=== PATIENT | female | born 1940 | race American Indian/Alaskan Native ===

== ENCOUNTER 2019-05-29 10:42 | Inpatient (IN) | payer MEDICARE ==
--- NOTE | 2019-05-29 11:29 | Emergency Department Report ---
HPI - General Chief Complaint: Chest Pain Time Seen by Provider: 05/29/19 11:16 - HPI HPI: 78-year-old -[place] female presents to the emergency department after she had a few syncopal or unresponsive episodes and later complained of some chest pain. The patient has a history of dementia and her daughter, who is currently her guardian, is at bedside giving most of the information. She says that the patient got up this morning and was at her normal baseline status when she suddenly started trembling and appeared to lose consciousness. She once again became responsive and her son helped her get up off of the toilet in the bathroom. They were then heading towards the door when the patient once again passed out and became unresponsive. At this point, EMS was called, and the patient woke up and became responsive by the time they arrived. At that point she complained of some chest pain. The patient is a poor historian. Her primary care physician is Dr. Chris Echols. 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 The patient also has a past medical history of hypertension, diabetes, coronary artery disease with MD and [address] ED Past Medical Hx - Past Medical History Hx Hypertension: Yes Hx CVA: Yes Hx Diabetes: Yes Hx Dementia: Yes - Social History Smoking Status: Never Smoker Substance Use Type: None - Medications Home Medications: Home Medications Medication Instructions Recorded Confirmed Last Taken Type Carvedilol [Coreg] 12.5 mg PO BID 05/29/19 05/29/19 05/29/19 History Clopidogrel [Plavix] 75 mg PO QDAY 05/29/19 05/29/19 05/29/19 History Lisinopril [Zestril TAB] 40 mg PO QDAY 05/29/19 05/29/19 05/29/19 History Metformin HCl [metFORMIN] 1,000 mg PO BID 05/29/19 05/29/19 05/29/19 History glyBURIDE [Diabeta] 5 mg PO DAILY 05/29/19 05/29/19 05/29/19 History ED Review of Systems ROS: Stated complaint: CHEST PAIN Other details as noted in HPI Comment: Unobtainable due to pts medical conditions Cardiovascular: chest pain, syncope Physical Exam - Physical Exam Vital Signs: Vital Signs 05/29/19 05/29/19 11:18 11:22 Temperature 97.7 F 97.7 F Pulse Rate 83 83 Respiratory 20 20 Rate Blood Pressure 141/79 Blood Pressure 141/79 [Left] O2 Sat by Pulse 97 97 Oximetry Physical Exam: GENERAL: The patient is well-developed well-nourished. HENT: Normocephalic. Atraumatic. Patient has moist mucous membranes. EYES: Extraocular motions are intact. NECK: Supple. Trachea is midline. CHEST/LUNGS: Clear to auscultation. There is no respiratory distress noted. HEART/CARDIOVASCULAR: Regular. There is no tachycardia. There is no murmur. ABDOMEN: Abdomen is soft, nontender. Patient has normal bowel sounds. There is no abdominal distention. SKIN: Skin is warm and dry. NEURO: The patient is awake but confused. Normal speech. No facial asymmetry. MUSCULOSKELETAL: There is no tenderness or deformity. There is no evidence of acute injury. ED Course Vital Signs 05/29/19 05/29/19 11:18 11:22 Temperature 97.7 F 97.7 F Pulse Rate 83 83 Respiratory 20 20 Rate Blood Pressure 141/79 Blood Pressure 141/79 [Left] O2 Sat by Pulse 97 97 Oximetry ED Medical Decision Making - Lab Data Result diagrams: 05/30/19 05:20 05/30/19 05:20 - EKG Data -: EKG Interpreted by Me EKG shows normal: sinus rhythm, axis, intervals, QRS complexes, ST-T waves Rate: normal - EKG Data When compared to previous EKG there are: previous EKG unavailable Interpretation: normal EKG - Radiology Data Radiology results: report reviewed, image reviewed interpreted by me: Chest x-ray does not show any acute process. There are no pleural effusions, obvious pneumonia and there is no pneumothorax. CT head/brain wo con INDICATION / CLINICAL INFORMATION: 78 years Female; AMS, unresponsive episode. TECHNIQUE: Routine CT head without contrast. All CT scans at this location are performed using CT dose reduction for ALARA by means of automated exposure control. COMPARISON: None. FINDINGS: BRAIN / INTRACRANIAL CONTENTS: No acute hemorrhage, mass effect, midline shift, hydrocephalus, or acute, large territorial infarct. No chronic infarct or encephalomalacia. Moderate cortical involution is seen. Temporal horn tips are markedly dilated bilaterally suggesting bilateral significant volume loss in the medial temporal lobes. In the sagittal images, marked atrophy of the entorhinal cortex is seen. These findings just enough Alzheimer's disease. Cerebellar hemispheres are well preserved. Periventricular and deep hemispheric white matter are normal. CRANIOCERVICAL JUNCTION: No significant abnormality. ORBITS: No significant abnormality of visualized orbits. SINUSES / MASTOIDS: No significant abnormality of the visualized paranasal sinuses or mastoid air cells. ADDITIONAL FINDINGS: None. IMPRESSION: I do not see an acute parenchymal lesion in the brain CT findings show volume loss in the medial temporal lobes and entorhinal cortex. These findings are suggestive of Alzheimer's disease. CTA CHEST WITH IV CONTRAST INDICATION: Chest pain, elevated d-dimer. TECHNIQUE: Axial CT images were obtained through the chest after injection of 100 mL Omnipaque 350 IV contrast. 3 plane MIP reconstructions were produced. All CT scans at this location are performed using CT dose reduction for ALARA by means of automated exposure control. COMPARISON: One view of the chest from earlier today. FINDINGS: PULMONARY ARTERIES: Well-opacified with extensive occlusive and nonocclusive thromboemboli beginning at the bifurcations of the main pulmonary arteries and extending along the segmental/subcutaneous segmental branches throughout each lung. No saddle emboli sm is identified. The pulmonary trunk is normal in caliber. AORTA AND ARTERIES: The aorta is normal in caliber. There is mild to moderate generalized atherosclerosis along the aorta and great vessels with dense generalized coronary atherosclerosis. MEDIASTINUM: The right thyroid lobe is mildly enlarged. No thyroid nodules are seen. The trachea and main bronchi are patent and normal in caliber. The trachea is mildly deviated to the left secondary to mass effect by the right thyroid lobe. No mass or lymphadenopathy is noted. The heart is normal in size without a pericardial effusion. No evidence of right heart strain is appreciated. LUNGS: Clear without a pneumothorax or pleural effusion. ADDITIONAL FINDINGS: None. UPPER ABDOMEN: No acute findings. BONES: There is osteopenia with degenerative changes of the shoulders and spine. No acute abnormality is seen. IMPRESSION: 1. Extensive bilateral pulmonary artery thromboemboli without evidence of right heart strain. 2. No additional acute abnormality of the chest. 3. Additional findings as above. - Medical Decision Making This patient was brought into the emergency department after having 2 syncopal and/or unresponsive episodes and then complaining of some chest discomfort. The patient is a very poor historian secondary to her dementia. Vital signs are stable throughout her ED course. A CT scan of the head was done that does not show any bleed, shift, mass, ischemia, or any other acute process. Patient's labs showed hypokalemia and a severely elevated d-dimer level. First troponin was negative. Secondary to the elevated d-dimer, a CT angiography of the chest was done that showed extensive bilateral pulmonary emboli without signs of right heart strain. Patient's second troponin began elevating. EKG did not show any signs of ST elevation MD. The patient was admitted to the telemetry floor by the hospitalist, Dr. Long, who ordered and initiated the IV heparin treatment. - Differential Diagnosis dementia, MD, PE, subarachnoid, dysrhythmia Critical Care Time: Yes Critical care time in (mins) excluding proc time.: 35 Critical care attestation.: If time is entered above; I have spent that time in minutes in the direct care of this critically ill patient, excluding procedure time. Critical care time was spent on this patient and doing her initial evaluation, multiple re-evaluations, ordering and interpretation of labs and imaging, discussion with the radiologist and hospitalist, discussion with the patient's family. Critical Care Time: 35 minutes ED Disposition Clinical Impression: Recurrent episodes of unresponsiveness, Acute chest pain, Hypokalemia, Elevated troponin Syncope Qualifiers: Syncope type: unspecified Qualified Code(s): R55 - Syncope and collapse Pulmonary emboli Qualifiers: Pulmonary embolism type: unspecified Chronicity: acute Acute cor pulmonale presence: without acute cor pulmonale Qualified Code(s): I26.99 - Other pulmonary embolism without acute cor pulmonale Disposition: OP ADMIT IP TO THIS HOSP Is pt being admited?: Yes Condition: Serious Time of Disposition: 15:09
[2019-05-29 11:50] LABS: Basophils # (Auto) 0.1 K/mm3 (0.0-0.1); Basophils % (Auto) 0.6 % (0.0-1.8); Eosinophils # (Auto) 0.1 K/mm3 (0.0-0.4); Eosinophils % (Auto) 1.2 % (0.0-4.3); Hematocrit 38.3 % (30.3-42.9); Hemoglobin 12.9 gm/dl (10.1-14.3); Lymphocytes # (Auto) 1.6 K/mm3 (1.2-5.4); Lymphocytes % (Auto) 15.3 % (13.4-35.0); Mean Corpuscular HGB Conc 34 % (30-34); Mean Corpuscular Volume 77 fl (79-97); Monocytes # (Auto) 0.6 K/mm3 (0.0-0.8); Monocytes % (Auto) 6.2 % (0.0-7.3); Platelet Count 170 K/mm3 (140-440); Red Blood Count 4.97 M/mm3 (3.65-5.03)
[2019-05-29] MEDS ORDERED: LORazepam 2 MG/ML VIAL IV ONE (12:05)
[2019-05-29] MEDS ORDERED: LORazepam 2 MG/ML VIAL ONE (12:07)
[2019-05-29 12:12] LABS: INR 1.18 (0.87-1.13)
[2019-05-29 12:14] LABS: Partial Thromboplastin Time 24.4 Sec. (24.2-36.6)
[2019-05-29 12:19] LABS: Alanine Aminotransferase 14 units/L (7-56); Albumin 3.8 g/dL (3.9-5); BUN/Creatinine Ratio 23; Blood Urea Nitrogen 21 mg/dL (7-17); Calcium 9.1 mg/dL (8.4-10.2); Hemolysis Index 9
--- NOTE | 2019-05-29 12:42 | XRay Report ---
CHEST 1 VIEW INDICATION: CP. COMPARISON: None. FINDINGS: Support devices: None. Heart: Within normal limits. Pulmonary vasculature: Normal. Lungs/Pleura: No acute air space or interstitial disease. Additional findings: None. IMPRESSION: 1. No acute findings. Signer Name: Luis Daniel Wadsworth MD Signed: 05/29/2019 12:38 PM Workstation Name: [id number]
[2019-05-29] MEDS ORDERED: POTASSIUM CHLORIDE ER 20 MEQ TAB PO ONE ×2 (13:03→23:24)
--- NOTE | 2019-05-29 14:06 | Cat Scan Report ---
CT head/brain wo con INDICATION / CLINICAL INFORMATION: 78 years Female; AMS, unresponsive episode. TECHNIQUE: Routine CT head without contrast. All CT scans at this location are performed using CT dos e reduction for ALARA by means of automated exposure control. COMPARISON: None. FINDINGS: BRAIN / INTRACRANIAL CONTENTS: No acute hemorrhage, mass effect, midline shift, hydrocephalus, or acu te, large territorial infarct. No chronic infarct or encephalomalacia. Moderate cortical involution i s seen. Temporal horn tips are markedly dilated bilaterally suggesting bilateral significant volume l oss in the medial temporal lobes. In the sagittal images, marked atrophy of the entorhinal cortex is seen. These findings just enough Alzheimer's disease. Cerebellar hemispheres are well preserved. [place] ventricular and deep hemispheric white matter are normal. CRANIOCERVICAL JUNCTION: No significant abnormality. ORBITS: No significant abnormality of visualized orbits. SINUSES / MASTOIDS: No significant abnormality of the visualized paranasal sinuses or mastoid air fina ls. ADDITIONAL FINDINGS: None. IMPRESSION: I do not see an acute parenchymal lesion in the brain CT findings show volume loss in the medial temporal lobes and entorhinal cortex. These findings are s uggestive of Alzheimer's disease. Signer Name: Marti Gomez MD Signed: 05/29/2019 2:02 PM Workstation Name: [id number]
[2019-05-29 15:31] LABS: Chol/HDL Ratio 4.64 %
--- NOTE | 2019-05-29 16:05 | Cat Scan Report ---
CTA CHEST WITH IV CONTRAST INDICATION: Chest pain, elevated d-dimer. TECHNIQUE: Axial CT images were obtained through the chest after injection of 100 mL Omnipaque 350 IV contrast. 3 plane MIP reconstructions were produced. All CT scans at this location are performed using CT dose reduction for ALARA by means of automated exposure control. COMPARISON: One view of the chest from earlier today. FINDINGS: PULMONARY ARTERIES: Well-opacified with extensive occlusive and nonocclusive thromboemboli beginning at the bifurcations of the main pulmonary arteries and extending along the segmental/subcutaneous seg mental branches throughout each lung. No saddle embolism is identified. The pulmonary trunk is normal in caliber. AORTA AND ARTERIES: The aorta is normal in caliber. There is mild to moderate generalized atheroscler osis along the aorta and great vessels with dense generalized coronary atherosclerosis. MEDIASTINUM: The right thyroid lobe is mildly enlarged. No thyroid nodules are seen. The trachea and main bronchi are patent and normal in caliber. The trachea is mildly deviated to the left secondary t o mass effect by the right thyroid lobe. No mass or lymphadenopathy is noted. The heart is normal in size without a pericardial effusion. No evidence of right heart strain is appreciated. LUNGS: Clear without a pneumothorax or pleural effusion. ADDITIONAL FINDINGS: None. UPPER ABDOMEN: No acute findings. BONES: There is osteopenia with degenerative changes of the shoulders and spine. No acute abnormality is seen. IMPRESSION: 1. Extensive bilateral pulmonary artery thromboemboli without evidence of right heart strain. 2. No additional acute abnormality of the chest. 3. Additional findings as above. CRITICAL RESULT: Radiologist: Dr. Wren Time of Discovery: 14:55 central standard time Time of Communication: 14:57 central standard time Licensed Practitioner Receiving Report: Dr. Hinson Read Back Performed: Yes. Signer Name: Real Wren MD Signed: 05/29/2019 4:01 PM Workstation Name: [id number]
[2019-05-29 16:56] LABS: Bacteria,Urine 1+ /HPF (Negative); Bilirubin,Urine NEG (Negative); Blood,Urine SM (Negative); Color,Urine Yellow (Yellow); Mucus,Urine FEW /HPF; Protein,Urine <15 mg/dL mg/dL (Negative); Urobilinogen,Urine < 2.0 mg/dL (<2.0)
[2019-05-29] MEDS ORDERED: ONDANSETRON 4 MG/2 ML INJ IV PRN ×2 (18:58→23:19)
[2019-05-29] MEDS ORDERED: ACETAMINOPHEN 325 MG TAB PO PRN ×2 (18:58→23:19)
[2019-05-29] MEDS ORDERED: METOCLOPRAMIDE 10 MG/2 ML INJ IV PRN (18:59)
[2019-05-29] MEDS ORDERED: HYDROmorphone 1 MG/1 ML INJ IV PRN (18:59)
[2019-05-29] MEDS ORDERED: oxyCODONE /ACETAMINOPHEN 5-325MG TAB PO PRN (18:59)
[2019-05-29] MEDS ORDERED: SODIUM CHLORIDE 0.9% 1000 ML 1,000 ML IV SCH (19:00)
[2019-05-29] MEDS ORDERED: HEPARIN 10,000 UNITS/10 ML VIAL IV ONE (19:00)
[2019-05-29 19:57] LABS: Hematocrit 37.1 % (30.3-42.9); Hemoglobin 12.4 gm/dl (10.1-14.3)
[2019-05-29 20:10] LABS: INR 1.26 (0.87-1.13)
[2019-05-29 20:35] LABS: Partial Thromboplastin Time 28.5 Sec. (24.2-36.6)
[2019-05-29] MEDS: HEPARIN/ 0.45% NACL DRIP 25,000 UNIT/500 ML BAG IV SCH (22:30)
[2019-05-29] MEDS: FAMOTIDINE 20 MG TAB PO SCH (22:32)
--- NOTE | 2019-05-29 23:13 | Event Note ---
Date: 05/29/19 See history and physical in the report acute pulmonary embolism Hypertension Type 2 diabetes
[2019-05-29] MEDS ORDERED: NON-FORMULARY EACH (Metformin Hcl [Metformin] 1,000 MG) PO SCH (23:30)
--- NOTE | 2019-05-29 23:49 | History and Physical Report ---
CHIEF COMPLAINT: 1. Chest pain. 2. Shortness of breath. HISTORY OF PRESENT ILLNESS: A 78-year-old female who presents to the Emergency Room with recurrent syncope and unresponsive episodes complicated by chest pain. The patient has a history of dementia. The patient got up this morning and was at normal baseline status when she suddenly started trembling and appeared to lose consciousness. She once again became responsive and her son helped her to get up off the toilet in the bathroom. The patient had 3 episodes of syncope this morning. The patient is a very poor historian. The patient also has a past medical history of hypertension, diabetes, coronary artery disease and 2 cardiac stents. PAST MEDICAL HISTORY: As mentioned, hypertension, coronary artery disease with 2 stents, cerebrovascular accident, diabetes, dementia. SOCIAL HISTORY: Never a smoker. FAMILY HISTORY: Hypertension. PAST SURGICAL HISTORY: Unavailable. CURRENT MEDICATIONS: Coreg 12.5 b.i.d., Plavix 75 p.o. daily, lisinopril 40 mg p.o. daily, metformin 1000 mg twice a day, glipizide 5 mg once a day. REVIEW OF SYSTEMS: Significant for recurrent syncope and shortness of breath. Otherwise, review of systems negative. PHYSICAL EXAMINATION: GENERAL: Elderly female, cooperative during examination. VITAL SIGNS: Blood pressure is 133/89, temperature is 98.7, pulse is 86, respirations are 28, sats are 93%. HEENT: Unremarkable. Pupils equal and reactive. NECK: Supple, no lymphadenopathy, no thyromegaly. LUNGS: Clear to auscultation and percussion. Good air entry. CARDIOVASCULAR: S1, S2 heard. No gallop, no murmur, no rub. Apical impulse in left fifth intercostal space and midclavicular line. ABDOMEN: Soft and benign. No hepatosplenomegaly. No guarding, no rigidity. Hernial orifices are normal. EXTREMITIES: Good pedal pulses. No pedal edema. CENTRAL NERVOUS SYSTEM: Alert and oriented x 2, cannot say the time and place. Can identify the person. LABORATORY DATA: Significant for normal CBC with a low MCV and MCH. D-dimer is more than 10,000. INR is 1.18, potassium is 2.9, BUN and creatinine is 21 and 0.9. Troponin is 0.010 and 0.074, trending up. Urine specific gravity 1.032. Echocardiogram shows sinus rhythm, heart rate of 78 per minute. Chest CTA shows extensive bilateral pulmonary artery thromboembolism without evidence of right heart strain. No radiation. No acute abnormalities. Chest x-ray was nonspecific. Head CT also shows no acute findings. ASSESSMENT AND PLAN: 1. Acute pulmonary embolism. The patient initiated on IV heparin drip. Interventional Radiology consulted for possible EKOS. There is no pulmonary hypertension. The patient may be switched to Eliquis or Xarelto in 48 hours to 72 hours. 2. Hypokalemia, supplemented. 3. Hypertension. Continue Coreg and lisinopril. 4. Diabetes. Continue glyburide and metformin. 5. Coronary artery disease. Continue Plavix. 6. Deep venous thrombosis prophylaxis. The patient is already on heparin drip and gastrointestinal prophylaxis in the form of famotidine. In summary, patient has acute PE, hypertension, hypokalemia, coronary artery disease, type 2 diabetes. JOB# [id number] ASHLEY/BERNADETTE OSEI
[2019-05-30] MEDS: carvediloL 12.5 MG TAB PO SCH ×3 (00:05→22:33)
[2019-05-30] MEDS: POTASSIUM CHLORIDE 10 MEQ 10 MEQ/100 ML BAG IV SCH ×4 (00:07→04:02)
[2019-05-30] MEDS: metFORMIN 500 MG TAB PO SCH ×3 (00:16→19:38)
[2019-05-30 05:36] LABS: Basophils % (Auto) 0.3 % (0.0-1.8); Eosinophils # (Auto) 0.1 K/mm3 (0.0-0.4); Eosinophils % (Auto) 0.6 % (0.0-4.3); Hematocrit 34.8 % (30.3-42.9); Hemoglobin 11.7 gm/dl (10.1-14.3); Lymphocytes # (Auto) 2.2 K/mm3 (1.2-5.4); Lymphocytes % (Auto) 24.2 % (13.4-35.0); Mean Corpuscular HGB Conc 34 % (30-34); Mean Corpuscular Volume 78 fl (79-97); Monocytes # (Auto) 0.8 K/mm3 (0.0-0.8); Monocytes % (Auto) 8.9 % (0.0-7.3); Platelet Count 168 K/mm3 (140-440); Red Blood Count 4.45 M/mm3 (3.65-5.03)
[2019-05-30 06:00] LABS: Albumin 3.5 g/dL (3.9-5); Calcium 8.5 mg/dL (8.4-10.2)
[2019-05-30] MEDS ORDERED: FAMOTIDINE 20 MG TAB PO SCH (10:00)
[2019-05-30] MEDS: INSULIN LISPRO 100 UNIT/ML SUB-Q SCH ×4 (11:10→22:33)
--- NOTE | 2019-05-30 12:48 | Consultation ---
History of Present Illness - Reason for Consult Consult date: 05/30/19 Pulmonary embolism - History of Present Illness HPI: 78yo female presented after syncopal episode and work-up demonstrated pulmonary embolism. Patient currently hemodynamically stable with normal sats on room air. The patient with hx of dementia and unable to provide much history. The patient lives with her daughter and the sons denies issues with frequent falls or previous DVT/PE. We've been consulted to determine if patient to benefit from pulmonary embolectomy. ROS: unable to obtain PE: NAD, alert non-labored respirations RRR both legs warm and well perfused, no edema noted Chest CT reviewed Plan: Given patient currently HDS with no evidence of distress would continue treatment with anticoagulation No need for endovascular intervention at this time please call for any questions/concerns Medications and Allergies Allergies Allergy/AdvReac Type Severity Reaction Status Date / Time No Known Allergies Allergy Unverified 05/29/19 11:12 Home Medications Medication Instructions Recorded Confirmed Last Taken Type Carvedilol [Coreg] 12.5 mg PO BID 05/29/19 05/29/19 05/29/19 History Clopidogrel [Plavix] 75 mg PO QDAY 05/29/19 05/29/19 05/29/19 History Lisinopril [Zestril TAB] 40 mg PO QDAY 05/29/19 05/29/19 05/29/19 History Metformin HCl [metFORMIN] 1,000 mg PO BID 05/29/19 05/29/19 05/29/19 History glyBURIDE [Diabeta] 5 mg PO DAILY 05/29/19 05/29/19 05/29/19 History Active Meds: Active Medications Acetaminophen (Tylenol) 650 mg PO Q4H PRN PRN Reason: Pain MILD(1-3)/Fever >100.5/ORO Carvedilol (Coreg) 12.5 mg PO BID [facility] Last Admin: 05/30/19 09:29 Dose: Not Given Documented by: Clopidogrel Bisulfate (Plavix) 75 mg PO QDAY [facility] Famotidine (Pepcid) 20 mg PO BID [facility] Last Admin: 05/29/19 22:32 Dose: 20 mg Documented by: Glyburide (Diabeta) 5 mg PO QDDIAB [facility] Hydromorphone HCl (Dilaudid) 0.5 mg IV Q3H PRN PRN Reason: Pain , Severe (7-10) Last Admin: 05/29/19 22:58 Dose: 0.5 mg Documented by: Heparin Sodium/Sodium Chloride (Heparin/ 0.45% Nacl-25,000 Unit/500 Ml) 25,000 unit in 500 mls @ 23 mls/hr IV TITR [facility]; Protocol Last Titration: 05/30/19 09:32 Dose: 1,000 units/hr, 20 mls/hr Documented by: Insulin Human Lispro (Humalog) 0 unit SUB-Q ACHS [facility]; Protocol Last Admin: 05/30/19 11:10 Dose: 2 unit Documented by: Lisinopril (Zestril) 40 mg PO QDAY [facility] Metformin HCl (Glucophage) 1,000 mg PO BIDDIAB [facility] Last Admin: 05/30/19 00:16 Dose: Not Given Documented by: Metoclopramide HCl (Reglan) 10 mg IV Q6H PRN PRN Reason: Nausea And Vomiting Ondansetron HCl (Zofran) 4 mg IV Q8H PRN PRN Reason: Nausea And Vomiting Last Admin: 05/29/19 22:58 Dose: 4 mg Documented by: Oxycodone/Acetaminophen (Percocet 5/325) 1 tab PO Q6H PRN PRN Reason: Pain, Moderate (4-6) Sodium Chloride (Sodium Chloride Flush Syringe 10 Ml) 10 ml IV BID [facility] Last Admin: 05/29/19 22:26 Dose: 10 ml Documented by: Sodium Chloride (Sodium Chloride Flush Syringe 10 Ml) 10 ml IV PRN PRN PRN Reason: LINE FLUSH Exam - Constitutional Vitals: Temp Pulse Resp BP Pulse Ox 98.9 F 71 20 88/56 99 05/30/19 07:32 05/30/19 07:32 05/30/19 07:32 05/30/19 07:36 05/30/19 07:32 Results - Labs CBC & Chem 7: 05/30/19 05:20 05/30/19 05:20 Labs: Abnormal lab results 05/29/19 05/29/19 05/29/19 Range/Units 11:25 11:25 11:25 MCV 77 L (79-97) fl MCH 26 L (28-32) pg [place] % (Auto) (0.0-7.3) % PT (12.2-14.9) Sec. INR 1.18 H (0.87-1.13) D-Dimer > 26451 H (0-234) ng/mlDDU Heparin Anti-Xa Level (0.3-0.7) U.I./ml Potassium 2.9 L* (3.6-5.0) mmol/L BUN 21 H (7-17) mg/dL Glucose 214 H (65-100) mg/dL POC Glucose (70-105) Hemoglobin A1c (4-6) % Troponin T (0.00-0.029) ng/mL Albumin 3.8 L (3.9-5) g/dL HDL Cholesterol (40-59) mg/dL Ur Specific [place] (1.003-1.030) 05/29/19 05/29/19 05/29/19 Range/Units 14:29 16:13 19:34 MCV (79-97) fl MCH (28-32) pg [place] % (Auto) (0.0-7.3) % PT (12.2-14.9) Sec. INR (0.87-1.13) D-Dimer (0-234) ng/mlDDU Heparin Anti-Xa Level (0.3-0.7) U.I./ml Potassium (3.6-5.0) mmol/L BUN (7-17) mg/dL Glucose (65-100) mg/dL POC Glucose (70-105) Hemoglobin A1c 7.4 H (4-6) % Troponin T 0.074 H D 0.105 H* D (0.00-0.029) ng/mL Albumin (3.9-5) g/dL HDL Cholesterol 34 L (40-59) mg/dL Ur Specific [place] (1.003-1.030) 05/29/19 05/29/19 05/30/19 Range/Units 19:35 Unknown 05:20 MCV (79-97) fl MCH (28-32) pg [place] % (Auto) (0.0-7.3) % PT 15.5 H (12.2-14.9) Sec. INR 1.26 H (0.87-1.13) D-Dimer (0-234) ng/mlDDU Heparin Anti-Xa Level 1.52 H (0.3-0.7) U.I./ml Potassium (3.6-5.0) mmol/L BUN (7-17) mg/dL Glucose (65-100) mg/dL POC Glucose (70-105) Hemoglobin A1c (4-6) % Troponin T (0.00-0.029) ng/mL Albumin (3.9-5) g/dL HDL Cholesterol (40-59) mg/dL Ur Specific [place] 1.032 H (1.003-1.030) 05/30/19 05/30/19 05/30/19 Range/Units 05:20 05:20 09:29 MCV 78 L (79-97) fl MCH 26 L (28-32) pg [place] % (Auto) 8.9 H (0.0-7.3) % PT (12.2-14.9) Sec. INR (0.87-1.13) D-Dimer (0-234) ng/mlDDU Heparin Anti-Xa Level (0.3-0.7) U.I./ml Potassium (3.6-5.0) mmol/L BUN 26 H (7-17) mg/dL Glucose 168 H (65-100) mg/dL POC Glucose 180 H (70-105) Hemoglobin A1c (4-6) % Troponin T (0.00-0.029) ng/mL Albumin 3.5 L (3.9-5) g/dL HDL Cholesterol (40-59) mg/dL Ur Specific [place] (1.003-1.030)
--- NOTE | 2019-05-30 12:53 | Progress Note ---
Assessment and Plan - Patient Problems (1) HTN (hypertension) Current Visit: Yes Status: Acute Plan to address problem: She currently has opted to control blood pressure 120/76. Patient continue on Coreg lisinopril. (2) Acute chest pain Current Visit: Yes Status: Acute Plan to address problem: 2 chest pain secondary to pulmonary embolism. Patient is currently stable chest pain-free. (3) Elevated troponin Current Visit: Yes Status: Acute (4) Pulmonary emboli Current Visit: Yes Status: Acute Qualifiers: Pulmonary embolism type: unspecified Chronicity: acute Acute cor pulmonale presence: without acute cor pulmonale Qualified Code(s): I26.99 - Other pulmonary embolism without acute cor pulmonale (5) Recurrent episodes of unresponsiveness Current Visit: Yes Status: Acute (6) Syncope Current Visit: Yes Status: Acute Qualifiers: Syncope type: unspecified Qualified Code(s): R55 - Syncope and collapse Plan to address problem: Syncope secondary to acute pulmonary embolism. Patient currently placed on heparin drip. Patient has consult to interventional radiology for possible EKOS. We'll currently be complicated secondary to patient's dementia mood disorder. Not sure if she was allow such a procedure. (7) CAD (coronary artery disease) Current Visit: Yes Status: Acute Plan to address problem: She did present chest pain-free. He should also with elevated cardiac isoen zymes. Increased troponin. We'll still have cardiology evaluate patient because she had a prior history of coronary disease. Echocardiogram also beneficial. (8) Dementia Current Visit: Yes Status: Acute Plan to address problem: Patient has advancing dementia with mood disorder. Unspecific what type. We'll treat with when necessary Ativan for now. History Interval history: Patient 78-year-old presents with syncopal episode. Prior to episode patient had prodromal symptoms of shortness of breath chest pain. Workup in the ED patient found to be significant for acute PE. Patient placed on heparin drip. At present patient resting comfortable hospital course uncomplicated now but is had several episodes of agitation in which she would not allow care. We'll pull out IV line. Son at bedside all questions and concerns answered to their satisfaction. Hospitalist Physical - Constitutional Vitals: Temp Pulse Resp BP Pulse Ox 98.9 F 71 20 88/56 99 05/30/19 07:32 05/30/19 07:32 05/30/19 07:32 05/30/19 07:36 05/30/19 07:32 General appearance: Present: mild distress, well-nourished, other - EENT Eyes: Present: PERRL, EOM intact ENT: hearing intact, clear oral mucosa, dentition normal, hearing decreased, poor dentition, no oropharyngeal erythema, no thrush, no ulcerations, no edentulous - Neck Neck: Present: supple, normal ROM. Absent: enlarged thyroid, masses or JVD, cervical LAD - Respiratory Respiratory effort: normal Respiratory: bilateral: diminished - Cardiovascular Heart rate: 102 Rhythm: regular - Extremities Extremities: no ischemia, pulses intact, pulses symmetrical, No edema, normal temperature, normal color Peripheral Pulses: within normal limits - Abdominal General gastrointestinal: soft, non-tender, non-distended, normal bowel sounds - Integumentary Integumentary: Present: clear, warm, dry - Psychiatric Psychiatric: appropriate mood/affect, intact judgment & insight - Neurologic Neurologic: other (patient has poor cognition mood disorder and agitation.) Results - Labs CBC & Chem 7: 05/30/19 05:20 05/30/19 05:20 Labs: Laboratory Last Values WBC 9.2 K/mm3 (4.5-11.0) 05/30/19 05:20 RBC 4.45 M/mm3 (3.65-5.03) 05/30/19 05:20 Hgb 11.7 gm/dl (10.1-14.3) 05/30/19 05:20 Hct 34.8 % (30.3-42.9) 05/30/19 05:20 MCV 78 fl (79-97) L 05/30/19 05:20 MCH 26 pg (28-32) L 05/30/19 05:20 MCHC 34 % (30-34) 05/30/19 05:20 RDW 14.0 % (13.2-15.2) 05/30/19 05:20 Plt Count 168 K/mm3 (140-440) 05/30/19 05:20 Lymph % (Auto) 24.2 % (13.4-35.0) 05/30/19 05:20 [place] % (Auto) 8.9 % (0.0-7.3) H 05/30/19 05:20 Eos % (Auto) 0.6 % (0.0-4.3) 05/30/19 05:20 Baso % (Auto) 0.3 % (0.0-1.8) 05/30/19 05:20 Lymph # 2.2 K/mm3 (1.2-5.4) 05/30/19 05:20 [place] # 0.8 K/mm3 (0.0-0.8) 05/30/19 05:20 Eos # 0.1 K/mm3 (0.0-0.4) 05/30/19 05:20 Baso # 0.0 K/mm3 (0.0-0.1) 05/30/19 05:20 Seg Neutrophils % 66.0 % (40.0-70.0) 05/30/19 05:20 Seg Neutrophils # 6.0 K/mm3 (1.8-7.7) 05/30/19 05:20 PT 15.5 Sec. (12.2-14.9) H 05/29/19 19:35 INR 1.26 (0.87-1.13) H 05/29/19 19:35 APTT 28.5 Sec. (24.2-36.6) 05/29/19 19:35 > 21992 ng/mlDDU (0-234) H 05/29/19 11:25 Heparin Anti-Xa Level 1.52 U.I./ml (0.3-0.7) H 05/30/19 05:20 Sodium 141 mmol/L (137-145) 05/30/19 05:20 Potassium 4.0 mmol/L (3.6-5.0) D 05/30/19 05:20 Chloride 104.5 mmol/L (98-107) 05/30/19 05:20 Carbon Dioxide 24 mmol/L (22-30) 05/30/19 05:20 17 mmol/L 05/30/19 05:20 BUN 26 mg/dL (7-17) H 05/30/19 05:20 1.1 mg/dL (0.7-1.2) 05/30/19 05:20 Estimated GFR 58 ml/min 05/30/19 05:20 24 % 05/30/19 05:20 Glucose 168 mg/dL (65-100) H 05/30/19 05:20 POC Glucose 192 (70-105) H 05/30/19 11:57 7.4 % (4-6) H 05/29/19 19:34 Calcium 8.5 mg/dL (8.4-10.2) 05/30/19 05:20 0.70 mg/dL (0.1-1.2) 05/30/19 05:20 AST 15 units/L (5-40) 05/30/19 05:20 ALT 10 units/L (7-56) 05/30/19 05:20 57 units/L (35-129) 05/30/19 05:20 0.105 ng/mL (0.00-0.029) H* D 05/29/19 16:13 6.4 g/dL (6.3-8.2) 05/30/19 05:20 3.5 g/dL (3.9-5) L 05/30/19 05:20 1.2 % 05/30/19 05:20 Triglycerides 111 mg/dL (2-149) 05/29/19 14:29 Cholesterol 158 mg/dL (50-199) 05/29/19 14:29 116 mg/dL (50-130) 05/29/19 14:29 34 mg/dL (40-59) L 05/29/19 14:29 4.64 % 05/29/19 14:29 TSH 1.710 mlU/mL (0.270-4.200) 05/29/19 11:25 Yellow (Yellow) 05/29/19 Unknown Clear (Clear) 05/29/19 Unknown 6.0 (5.0-7.0) 05/29/19 Unknown Ur Specific [place] 1.032 (1.003-1.030) H 05/29/19 Unknown <15 mg/dl mg/dL (Negative) 05/29/19 Unknown 150 mg/dL (Negative) 05/29/19 Unknown 20 mg/dL (Negative) 05/29/19 Unknown Sm (Negative) 05/29/19 Unknown Neg (Negative) 05/29/19 Unknown Neg (Negative) 05/29/19 Unknown < 2.0 mg/dL (<2.0) 05/29/19 Unknown Ur Leukocyte Esterase Neg (Negative) 05/29/19 Unknown 2.0 /HPF (0.0-6.0) 05/29/19 Unknown 2.0 /HPF (0.0-6.0) 05/29/19 Unknown U Epithel Cells (Auto) 1.0 /HPF (0-13.0) 05/29/19 Unknown 1+ /HPF (Negative) 05/29/19 Unknown Few /HPF 05/29/19 Unknown Blood Type O POSITIVE 05/29/19 11:25 Antibody Screen Negative 05/29/19 11:25 Active Medications - Current Medications Current Medications: Generic Name Dose Route Start Last Admin Trade Name Freq PRN Reason Stop Dose Admin Acetaminophen 650 mg 05/29/19 18:58 Tylenol PO Q4H PRN Pain MILD(1-3)/Fever >100.5/ORO Carvedilol 12.5 mg 05/29/19 23:45 05/30/19 09:29 Coreg PO Not Given BID [facility] Clopidogrel Bisulfate 75 mg 05/30/19 10:00 Plavix PO QDAY [facility] Famotidine 20 mg 05/29/19 22:00 05/29/19 22:32 Pepcid PO 20 mg BID [facility] Administration Glyburide 5 mg 05/30/19 08:00 Diabeta PO QDDIAB [facility] Hydromorphone HCl 0.5 mg 05/29/19 18:59 05/29/19 22:58 Dilaudid IV 0.5 mg Q3H PRN Administration Pain , Severe (7-10) Heparin Sodium/Sodium Chloride 25,000 unit in 500 mls @ 23 mls/hr 05/29/19 19:00 05/30/19 09:32 Heparin/ 0.45% Nacl-25,000 Unit/500 Ml IV 1,000 units/hr TITR MALIK 20 mls/hr Titration Protocol 1,150 UNITS/HR Insulin Human Lispro 0 unit 05/30/19 07:30 05/30/19 11:10 Humalog SUB-Q 2 unit ACHS MALIK Administration Protocol Lisinopril 40 mg 05/30/19 10:00 Zestril PO QDAY [facility] Lorazepam 1 mg 05/30/19 12:47 Ativan IV Q4H PRN Agitation Metformin HCl 1,000 mg 05/29/19 23:30 05/30/19 00:16 Glucophage PO Not Given BIDDIAB [facility] Metoclopramide HCl 10 mg 05/29/19 18:59 Reglan IV Q6H PRN Nausea And Vomiting Ondansetron HCl 4 mg 05/29/19 18:58 05/29/19 22:58 Zofran IV 4 mg Q8H PRN Administration Nausea And Vomiting Oxycodone/Acetaminophen 1 tab 05/29/19 18:59 Percocet 5/325 PO Q6H PRN Pain, Moderate (4-6) Sodium Chloride 10 ml 05/29/19 22:00 05/29/19 22:26 Sodium Chloride Flush Syringe 10 Ml IV 10 ml BID MALIK Administration Sodium Chloride 10 ml 05/29/19 18:58 Sodium Chloride Flush Syringe 10 Ml IV PRN PRN LINE FLUSH Nutrition/Malnutrition Assess - Dietary Evaluation Nutrition/Malnutrition Findings: Nutrition Notes Start: 05/30/19 11:41 Freq: Status: Active Protocol: Document 05/30/19 11:41 KS (Rec: 05/30/19 12:06 KS [id number]) Co-Sign 05/30/19 11:41 LM Nutrition Notes Need for Assessment generated from: tax economist,MST Initial or Follow up Assessment Current Diagnosis Coronary Artery Disease, Diabetes,Hypertension,Stroke Other Pertinent Diagnosis Dementia, 2 cardiac stents, PE , syncope Current Diet Cardiac Labs/Tests BUN 26 Glu 168 Pertinent Medications Reviewed Height 5 ft 6 in Weight 79.3 kg Usual Body Weight 82 kg [place] Body Weight (kg) 59.09 BMI 28.2 Intake Prior to Admission Good Weight Status Overweight Subjective/Other Information RN screen for MST. Family reports pt had good appetite and would snack throughout the day [employer]. Family reports no recent wt changes and a UBW of 180lbs. Family member assists with feedings. Pt uses hands to eat. Family reports pt has been eating bites of food from hospital trays. Pt consumed 25% of breakfast tray. Family member believes pt would drink ONS shake. Recommend Glucerna BID. Burn Absent Trauma Absent Minimum of two criteria No #1 Nutrition Diagnosis Inadequate oral intake Etiology dementia As Evidenced by Signs and Symptoms pt eating 25% of meals Is patient on ventilator? No Is Patient Ambulatory and/or Out of Bed Yes REE-([place]-St. Jeor-ambulatory/OOB) [ 3628.175 [id number]] Calculation Used for Recommendations [facility] Additional Notes PRO needs: 79 - 95g/day (1-1. 2g/kg/day) Fluid: 1mL/kcal Nutrition Intervention Change Diet Order: Change to Cardiac/Consistent CHO diet Add Supplement/Snack (indicate name/kcal Glucerna [place] or Vanilla /protein ) BID Provides kCal: 440 Provides Protein (gm) 20 Goal #1 Meet at least 75% of energy/ PRO needs via PO and ONS intakes. Anticipated Discharge Needs: Cardiac/Consistent CHO diet Follow-Up By: 06/03/19 Additional Comments Follow for PO and ONS intakes
[2019-05-30] MEDS: LISINOPRIL 40 MG TAB PO SCH (12:55)
[2019-05-30] MEDS: LORazepam 2 MG/ML VIAL IV PRN ×2 (15:33→19:31)
[2019-05-30] MEDS: glyBURIDE 5 MG TAB PO SCH (15:34)
[2019-05-30] MEDS: CLOPIDOGREL 75 MG TAB PO SCH (15:35)
[2019-05-30] MEDS: FAMOTIDINE 20 MG TAB PO SCH ×2 (15:35→22:33)
[2019-05-30] MEDS: HEPARIN/ 0.45% NACL DRIP 25,000 UNIT/500 ML BAG IV SCH (22:23)
[2019-05-31 07:47] LABS: Hematocrit 32.3 % (30.3-42.9)
[2019-05-31 08:56] VITALS: BP 156/80
[2019-05-31] MEDS: carvediloL 12.5 MG TAB PO SCH (10:14)
[2019-05-31] MEDS: metFORMIN 500 MG TAB PO SCH (10:14)
[2019-05-31] MEDS: LISINOPRIL 40 MG TAB PO SCH (10:14)
[2019-05-31] MEDS: glyBURIDE 5 MG TAB PO SCH (10:14)
[2019-05-31] MEDS: CLOPIDOGREL 75 MG TAB PO SCH (10:14)
[2019-05-31] MEDS: FAMOTIDINE 20 MG TAB PO SCH (10:14)
[2019-05-31] MEDS: INSULIN LISPRO 100 UNIT/ML SUB-Q SCH ×2 (10:15→12:20)
--- NOTE | 2019-05-31 10:24 | Discharge Summary ---
Providers - Providers Date of Admission: 05/30/19 10:10 Date of discharge: 05/31/19 Attending physician: NEAL GARCIA 05/29/19 18:59 Consult to Physician [CONS] Routine Comment: Consulting Provider: CARLA ARSHAD Physician Instructions: Reason For Exam: Acute PE 05/30/19 12:56 Consult to Physician [CONS] Routine Comment: Consulting Provider: CHERIE AHN Physician Instructions: Reason For Exam: chest pain elevated enzymes Primary care physician: MADY DAVIS MD Hospitalization Condition: Serious Pertinent studies: CTA which showed bilateral pulmonary embolism. Hospital course: Agent 78-year-old female presents with syncopal episode shortness of breath. Workup patient found to have pulmonary embolism. No evidence of DVT. Patient was brought and placed on heparin drip. Patient remained hemodynamically stable. Interventional radiology was consulted for possible EKOS. Patient did not meet criteria because she was hemodynamically stable and no need for intravascular intervention. Patient would then change to Eliquis. Patient will continue this and follow with both primary care physician and pulmonology 1-2 weeks. Disposition: TO HOME OR SELFCARE - Discharge Diagnoses (1) HTN (hypertension) Status: Acute Comment: She continue to have optimal control blood pressure Coreg and lisinopril. (2) Acute chest pain Status: Acute Comment: A she did have chest pain and a questionable history of coronary artery disease. Elevated troponin. We'll await cardiology evaluation. (3) Elevated troponin Status: Acute Comment: Await cardiology evaluation. Prior to discharge. (4) Pulmonary emboli Status: Acute Qualifiers: Pulmonary embolism type: unspecified Chronicity: acute Acute cor pulmonale presence: without acute cor pulmonale Qualified Code(s): I26.99 - Other pulmonary embolism without acute cor pulmonale Comment: will tx with eaquis 10mg bid for 7 dys then 5 mg bid risk of falls and bleeding discussed in detail (5) Recurrent episodes of unresponsiveness Status: Acute (6) Syncope Status: Acute Qualifiers: Syncope type: unspecified Qualified Code(s): R55 - Syncope and collapse Comment: secondary to PE (7) CAD (coronary artery disease) Status: Acute (8) Dementia Status: Acute Comment: Agent with advanced dementia mood disorder requiring Ativan for control. Patient therefore would do better in the home setting. No not have to receive benzodiazepine. Core Measure Documentation - Palliative Care Palliative Care/ Comfort Measures: Not Applicable - Core Measures Any of the following diagnoses?: none Exam - Constitutional Vitals: Temp Pulse Resp BP Pulse Ox 97.6 F 69 16 156/80 99 05/31/19 08:04 05/31/19 08:04 05/31/19 08:04 05/31/19 08:04 05/31/19 08:04 General appearance: Present: no acute distress, well-nourished - EENT Eyes: Present: PERRL ENT: hearing intact, clear oral mucosa - Neck Neck: Present: supple, normal ROM - Respiratory Respiratory effort: normal Respiratory: bilateral: CTA - Cardiovascular Heart Sounds: Present: S1 & S2. Absent: rub, click - Extremities Extremities: pulses symmetrical, No edema Peripheral Pulses: within normal limits - Abdominal General gastrointestinal: Present: soft, non-tender, non-distended, normal bowel sounds Female genitourinary: Present: normal - Integumentary Integumentary: Present: clear, warm, dry - Musculoskeletal Musculoskeletal: gait normal, strength equal bilaterally - Psychiatric Psychiatric: agitated, other (confused ) - Neurologic Neurologic: CNII-XII intact, moves all extremities Plan Activity: up only with assistance, fall precautions Weight Bearing Status: Weight Bear as Tolerated Diet: low fat, low cholesterol Follow up with: PRIMARY CARE, [Referring] - 3-5 Days Prescriptions: Carvedilol [Coreg] 12.5 mg PO BID #60 tablet glyBURIDE [Diabeta] 5 mg PO DAILY #30 tablet Apixaban [Eliquis] 10 mg PO Q12HR #14 tablet Metformin HCl [metFORMIN] 1,000 mg PO BID #60 tablet Famotidine [Pepcid] 20 mg PO BID #60 tablet Clopidogrel [Plavix] 75 mg PO QDAY #30 tablet Lisinopril [Zestril TAB] 40 mg PO QDAY #30 tablet
--- NOTE | 2019-05-31 11:55 | Consultation ---
History of Present Illness Consult date: 05/31/19 Consult reason: chest pain, syncope History of present illness: The patient is a 68-year-old woman with advanced dementia, who presented to the hospital with shortness of breath, chest pain and syncope. A CT angiogram of the chest was consistent with extensive bilateral pulmonary embolism. She was admitted for initiation of anticoagulant therapy. Cardiology consultation was requested for the finding of a nonspecific mild elevation of the troponin. EKG is normal sinus rhythm, nonspecific ST and T-wave changes, no acute ischemic findings. Chest x-ray revealed no evidence of interstitial edema and waterline increasing cardiac silhouette. History from the daughter who was at the bedside reports that the patient has coronary artery disease and underwent coronary stenting several years ago at [place]. Earlier this year, her oral antiplatelet Plavix therapy was discontinued ostensibly after completion of guideline directed duration of DAPT. Currently the patient is breathing comfortably on bedrest and her room, is confused consistent with her diagnosis of dementia, but otherwise appears clinically stable. Past History Past Medical History: CAD, diabetes, hypertension, other (dementia) Medications and Allergies Allergies Allergy/AdvReac Type Severity Reaction Status Date / Time No Known Allergies Allergy Unverified 05/29/19 11:12 Home Medications Medication Instructions Recorded Confirmed Last Taken Type Apixaban [Eliquis] 10 mg PO Q12HR #14 tablet 05/31/19 Unknown Rx Carvedilol [Coreg] 12.5 mg PO BID #60 tablet 05/31/19 Unknown Rx Clopidogrel [Plavix] 75 mg PO QDAY #30 tablet 05/31/19 Unknown Rx Famotidine [Pepcid] 20 mg PO BID #60 tablet 05/31/19 Unknown Rx Lisinopril [Zestril TAB] 40 mg PO QDAY #30 tablet 05/31/19 Unknown Rx Metformin HCl [metFORMIN] 1,000 mg PO BID #60 tablet 05/31/19 Unknown Rx glyBURIDE [Diabeta] 5 mg PO DAILY #30 tablet 05/31/19 Unknown Rx Active Meds: Active Medications Acetaminophen (Tylenol) 650 mg PO Q4H PRN PRN Reason: Pain MILD(1-3)/Fever >100.5/ORO Apixaban (Eliquis) 10 mg PO Q12HR MALIK; Protocol Carvedilol (Coreg) 12.5 mg PO BID MALIK Last Admin: 05/31/19 10:14 Dose: 12.5 mg Documented by: Clopidogrel Bisulfate (Plavix) 75 mg PO QDAY [facility] Last Admin: 05/31/19 10:14 Dose: 75 mg Documented by: Famotidine (Pepcid) 20 mg PO BID [facility] Last Admin: 05/31/19 10:14 Dose: 20 mg Documented by: Glyburide (Diabeta) 5 mg PO QDDIAB [facility] Last Admin: 05/31/19 10:14 Dose: 5 mg Documented by: Insulin Human Lispro (Humalog) 0 unit SUB-Q ACHS [facility]; Protocol Last Admin: 05/31/19 10:15 Dose: Not Given Documented by: Lisinopril (Zestril) 40 mg PO QDAY [facility] Last Admin: 05/31/19 10:14 Dose: 40 mg Documented by: Lorazepam (Ativan) 1 mg IV Q4H PRN PRN Reason: Agitation Last Admin: 05/30/19 19:31 Dose: 1 mg Documented by: Metformin HCl (Glucophage) 1,000 mg PO BIDDIAB [facility] Last Admin: 05/31/19 10:14 Dose: 1,000 mg Documented by: Metoclopramide HCl (Reglan) 10 mg IV Q6H PRN PRN Reason: Nausea And Vomiting Ondansetron HCl (Zofran) 4 mg IV Q8H PRN PRN Reason: Nausea And Vomiting Last Admin: 05/29/19 22:58 Dose: 4 mg Documented by: Oxycodone/Acetaminophen (Percocet 5/325) 1 tab PO Q6H PRN PRN Reason: Pain, Moderate (4-6) Sodium Chloride (Sodium Chloride Flush Syringe 10 Ml) 10 ml IV BID [facility] Last Admin: 05/30/19 22:12 Dose: 10 ml Documented by: Sodium Chloride (Sodium Chloride Flush Syringe 10 Ml) 10 ml IV PRN PRN PRN Reason: LINE FLUSH Review of Systems ROS unobtainable: due to mental status Physical Examination Vital Signs Pulse Resp 80 17 05/29/19 11:06 05/29/19 11:06 General appearance: other (confused due to dementia) HEENT: Positive: PERRL Neck: Positive: neck supple Cardiac: Positive: Reg Rate and Rhythm Lungs: Positive: Decreased Breath Sounds Neuro: Positive: Grossly Intact Abdomen: Positive: Soft Female genitourinary: deferred Skin: Positive: Clear Extremities: Absent: edema Results 05/31/19 07:16 05/30/19 05:20 CBC 05/31/19 Range/Units 07:16 Hgb 11.0 (10.1-14.3) gm/dl Hct 32.3 (30.3-42.9) % Plt Count 160 (140-440) K/mm3 EKG interpretations - Telemetry EKG Rhythm: Sinus Rhythm Assessment and Plan - Patient Problems (1) Pulmonary emboli Current Visit: Yes Status: Acute Qualifiers: Pulmonary embolism type: unspecified Chronicity: acute Acute cor pulmonale presence: without acute cor pulmonale Qualified Code(s): I26.99 - Other pulmonary embolism without acute cor pulmonale Plan to address problem: Patient presented with chest pain and syncope, due to acute bilateral pulmonary embolism. There are no clinical findings of acute cardiac issues at this time. We will order an echocardiogram for left ventricular function and right ventricular size and function, and continue guideline directed medical therapy for her underlying coronary artery disease.
[2019-05-31] MEDS ORDERED: APIXABAN 5 MG TAB PO SCH (22:00)
== END 2019-05-31 15:30 | disposition home or self-care (01) | DRG 176 ==
LOC: ED 10:42 → 4A 15:09 → OBSVTOIN 05-30 10:10
PROVIDERS: ADMIT Internal Medicine; ATTEND Internal Medicine
DX: I26.99 Other pulmonary embolism without acute cor pulmonale (principal); E87.6 Hypokalemia; F03.90 Unspecified dementia, unspecified severity, without behavioral disturbance, psychotic disturbance, mood disturbance, and anxiety; I10 Essential (primary) hypertension; E11.9 Type 2 diabetes mellitus without complications; R55 Syncope and collapse; I25.10 Atherosclerotic heart disease of native coronary artery without angina pectoris; I25.2 Old myocardial infarction; Z95.5 Presence of coronary angioplasty implant and graft; Z86.73 Personal history of transient ischemic attack (TIA), and cerebral infarction without residual deficits; Z79.84 Long term (current) use of oral hypoglycemic drugs
CPT/HCPCS: 36415; 70450; 71045; 71275; 80053; 80061; 81001; 82962; 83036; 84443; 84484; 85014; 85018; 85025; 85049; 85379; 85520; 85610; 85730; 86850; 86900; 86901; 93005; 93010; 93306; 96374; 96375; G0378; J1170; J1644; J2060; J2405; J3480; J7030; Q9967